=== PATIENT | female | born 2000 | race Caucasian/White ===

== ENCOUNTER 2020-12-08 06:08 | Outpatient (CLI) | payer BC ==
[~2020-12-08] VITALS: Ht 165.1 cm; Wt 59.0 kg
[2020-12-15] MEDS ORDERED: MULT-1136 PO (14:36)
[2020-12-15] MEDS ORDERED: DIPH25TA65 PO (14:36)
== END 2020-12-15 14:53 | disposition home or self-care (01) ==
LOC: PREOP 06:08
PROVIDERS: ATTEND Podiatrist Foot & Ankle Surgery
DX: Z01.818 Encounter for other preprocedural examination (principal)

== ENCOUNTER 2020-12-22 07:56 | Day surgery (SDC) | payer BC ==
[~2020-12-22] VITALS: Ht 165.1 cm; Wt 59.0 kg
[2020-12-22] VITALS (11 sets, daily range): BP systolic 99–140; BP diastolic 49–100
[~2020-12-22 07:56] MED LIST: DIPH25TA65 PO; MULT-1136 PO
--- OUTSIDE RECORDS SUMMARY | 2020-12-22 07:59 | XMS REPORT ---
Author Author Kim Pate [facility] Address [address] [place], [place] [id number] Care Team Providers Care Five Piece Expansion Maker Hand Name Role Phone Lola Pate PCP Tracey Fernandeserine PreferredProvider Allergies and Adverse Reactions Name Reaction Notes Augmentin Ceftin amoxicillin Plan of Treatment Planned Activity Comments Planned Date Planned Time Plan/Goal Thyroid antibody assay 12/05/2020 12:00 AM DONTE W/REFLEX 12/05/2020 12:00 AM Tick-borne disease panel 12/05/2020 12:00 AM Tick-borne disease panel 12/05/2020 12:00 AM Tick-borne disease panel 12/05/2020 12:00 AM EBV comprehensive antibody panel 12/05/2020 12:00 AM EBV comprehensive antibody panel 12/05/2020 12:00 AM Medications Active Name Start Date Estimated Completion Date SIG Co mments Cyclafem 1/35 (28) 1 mg-35 mcg tablet 09/11/2020 08/13/2021 take 1 tablet by oral route once daily for 28 days Name Start Date Expiration Date SIG Comments Medrol (Koby) 4 mg oral tablets,dose pack 09/06/2015 09/07/19 16 take as directed for 1 day amoxicillin 875 mg oral tablet 10/25/2016 11/04/2016 t elder 1 tablet (875 mg) by oral route every 12 hours for 10 days Bactrim DS 800-160 mg oral tablet 06/13/2019 06/23/2019 take 1 tablet by oral route every 12 hours for 10 days desonide 0.05 % topical lotion 08/30/2019 09/12/2019 a pply sparingly and rub gently into the affected area(s) by topical route 2 times per day after washing face with baby soap and warm water. Discontinued Name Start Date Discontinued Date SIG Comments ondansetron 4 mg oral tablet,disintegrating 11/21/20162018 dissolve 1 tablet by oral route every 6 hours as needed 04/16 (21) 1-20 mg-mcg oral tablet 10/19/2018 9 take 1 tablet by oral route once daily for 28 days PreGenna 20 mg iron- 1 mg oral tablet 05/29/2020 take 1 tablet by oral route QD (multivitamin) Problem List Not available. Vital Signs Date Time BP-Sys(mm[Hg] BP-Alyx(mm[Hg]) HR(bpm) RR(rpm) Temp WT HT HC BMI BSA BMI Percentile O2 Sat(%) 12/03/2020 6:01:00 PM 110 mm[Hg] 62 mm[Hg] 72 {beats}/min 18 rpm 98.1 F 133.312 lbs 66 in 21.517 kg/m2 1.6781 m2 100 % 05/29/2020 11:51:00 AM 124 mm[Hg] 80 mm[Hg] 86 {beats}/min 18 rpm 98.8 F 137 lbs 66 in 22.11 kg/m2 1.70 m2 99 % 08/29/2019 11:07:00 AM 114 mm[Hg] 68 mm[Hg] 72 {beats}/min 18 rpm 99 F 142 lbs 66 in 22.9192 kg/m2 1.7319 m2 99 % 04/03/2019 2:09:00 PM 122 mm[Hg] 68 mm[Hg] 86 {beats}/min 18 rpm 98.6 F 133.375 lbs 66 in 21.53 kg/m2 1.68 m2 99 % 12/12/2018 2:37:00 PM 116 mm[Hg] 68 mm[Hg] 70 {beats}/min 18 rpm 98.1 F 137 lbs 66 in 22.1122 kg/m2 1.7011 m2 0 % 98 % 05/04/2018 10:19:00 AM 114 mm[Hg] 64 mm[Hg] 76 {beats}/min 18 rpm 98.1 F 130.125 lbs 66 in 21.00 kg/m2 1.66 m2 41.3 % 98 % 11/21/2016 2:12:00 PM 118 mm[Hg] 82 mm[Hg] 103 {beats}/min 20 rpm 97.8 F 116 lbs 100 % 10/25/2016 2:13:00 PM 112 mm[Hg] 64 mm[Hg] 90 {beats}/min 18 rpm 97.8 F 123.125 lbs 66 in 19.87 kg/m2 1.61 m2 29.9 % 99 % 09/06/2015 9:44:00 AM 138 mm[Hg] 90 mm[Hg] 77 {beats}/min 20 rpm 96.9 F 119 lbs 66 in 19.2069 kg/m2 1.5854 m2 25.9 % 99 % Social History Name Description Comments Tobacco Never smoker Alcohol Never Exercises regularly History of Procedures Date Ordered Description Order Status 12/12/2018 2:54 PM FALL RISK ASSESSMENT DOCD Reviewed 12/12/2018 2:54 PM SCREEN DEPRESSION PERFORMED Reviewed 04/03/2019 2:38 PM FALL RISK ASSESSMENT DOCD Reviewed 04/03/2019 2:38 PM SCREEN DEPRESSION PERFORMED Reviewed 05/03/2019 12:00 AM Physical Therapy Consultation Reviewed 08/29/2019 12:04 PM FALL RISK ASSESSMENT DOCD Reviewed 08/29/2019 12:04 PM SCREEN DEPRESSION PERFORMED Reviewed 08/29/2019 12:00 AM COMPLETE CBC W/AUTO DIFF WBC Reviewed 08/29/2019 12:00 AM COMPREHEN METABOLIC PANEL Reviewed 05/29/2020 12:00 AM ROUTINE VENIPUNCTURE Reviewed 05/29/2020 12:00 AM COMPLETE CBC W/AUTO DIFF WBC Reviewed 05/29/2020 12:00 AM COMPREHEN METABOLIC PANEL Reviewed 05/29/2020 12:00 AM ASSAY THYROID STIM HORMONE Reviewed 05/29/2020 12:00 AM ASSAY OF FREE THYROXINE Reviewed 05/29/2020 12:00 AM VITAMIN D 25 HYDROXY Reviewed 05/29/2020 12:00 AM MILA-VILLAR NUCLEAR ANTIGEN Reviewed 05/29/2020 12:00 AM MILA-VILLAR CAPSID VCA Reviewed 05/29/2020 12:00 AM US EXAM OF HEAD AND NECK Reviewed 12/05/2020 12:00 AM COMPLETE CBC W/AUTO DIFF WBC Reviewed 12/05/2020 12:00 AM COMPREHEN METABOLIC PANEL Reviewed 12/05/2020 12:00 AM ASSAY THYROID STIM HORMONE Reviewed 12/05/2020 12:00 AM ASSAY OF FREE THYROXINE Reviewed 12/05/2020 12:00 AM ASSAY TRIIODOTHYRONINE (T3) Reviewed 12/05/2020 12:00 AM ROUTINE VENIPUNCTURE Reviewed Results Summary Date and Description Results 05/04/2018 11:46 AM Falls in last 6 months? No U nsteady or worry about falling? No Fall Risk Assessment Not At Risk During the past month, have you been feeling depressed? No During the past month, have you lost interest in usual activity? No 12/12/2018 2:54 PM Falls in last 6 months? No U nsteady or worry about falling? No Fall Risk Assessment Not At Risk During the past month, have you been feeling depressed? No During the past month, have you lost interest in usual activity? No 04/03/2019 2:38 PM Falls in last 6 months? No U nsteady or worry about falling? No Fall Risk Assessment Not At Risk During the past month, have you been feeling depressed? No During the past month, have you lost interest in usual activity? No 08/29/2019 11:40 AM WBC 6.1 RBC 4.77 HGB 13.90 g /dLHCT 42.20 %MCV 89.0 fLMCH 29.10 pgMCHC 32.90 g/dLRDW SD 42 fLRDW CV 12.90 %MPV 10.90 fLPLT 292 x10E3/uLNRBC# 0.00 NRBC% 0.0 %NEUT 55.5 %LYMP 28.6 %MONO 9.9 %EOS 4.6 %BASO 1.2 #NEUT 3.36 #LYMP 1.73 #MONO 0.60 #EOS 0.28 #BASO 0.07 MANUAL DIFF NOT IND GLUCOSE 90 SODIUM 138 POTASSIUM 4.8 CHLORIDE 106.0 mmol/LCO2 25 BUN 10.0 mg/dLCREATININE 0.810 mg/dLSGOT/AST 20 SGPT/ALT 10 ALK PHOS 76 TOTAL PROTEIN 6.7 ALBUMIN 4.0 TOTAL BILI 0.5 CALCIUM 9.70 mg/dLAGE 19 GFR NonAA 89 GFR AA 108 eGFR 89 mL/min/1.73meGFR AA* >60 mL/min/1.73m 08/29/2019 12:04 PM Falls in last 6 months? No U nsteady or worry about falling? No Fall Risk Assessment Not At Risk During the past month, have you been feeling depressed? No During the past month, have you lost interest in usual activity? No 05/29/2020 12:45 PM WBC 8.8 RBC 4.90 HGB 14.10 g /dLHCT 44.0 %MCV 90.0 fLMCH 28.80 pgMCHC 32.0 g/dLRDW SD 42 %RDW CV 12.70 %MPV 10.50 fLPLT 403 x10E3/uLNRBC# 0.00 NRBC% 0.0 %NEUT 67.5 %LYMP 22.8 %MONO 7.4 %EOS 1.4 %BASO 0.7 #NEUT 5.91 #LYMP 2.00 #MONO 0.65 #EOS 0.12 #BASO 0.06 MANUAL DIFF NOT IND FREE T4 1.06 VITAMIN D 34.4 GLUCOSE 90 SODIUM 134 POTASSIUM 4.3 CHLORIDE 102.0 mmol/LCO2 27 BUN 7.0 mg/dLCREATININE 0.80 mg/dLSGOT/AST 35 SGPT/ALT 25 ALK PHOS 48 TOTAL PROTEIN 6.9 ALBUMIN 4.0 TOTAL BILI 0.6 CALCIUM 9.60 mg/dLAGE 19 GFR NonAA 91 GFR AA 110 eGFR 91 mL/min/1.73meGFR AA* >60 mL/min/1.73mTSH 1.23 EBV Ab VCA, IgM <36.0 EBV Ab VCA, IgG <18.0 EBV Nuclear Antigen Ab,IgG <18.0 Interpretation: JESICA 12/05/2020 5:30 PM WBC 8.6 RBC 4.26 HGB 12.10 g /dLHCT 37.70 %MCV 89.0 fLMCH 28.40 pgMCHC 32.10 g/dLRDW SD 40 %RDW CV 12.50 %MPV 11.30 fLPLT 388 x10E3/uLNRBC# 0.00 NRBC% 0.0 %NEUT 60.3 %LYMP 26.5 %MONO 9.2 %EOS 2.4 %BASO 1.4 #NEUT 5.19 #LYMP 2.28 #MONO 0.79 #EOS 0.21 #BASO 0.12 MANUAL DIFF NOT IND T3 TOTAL 1.87 GLUCOSE 106 SODIUM 137 POTASSIUM 4.3 CHLORIDE 103.0 mmol/LCO2 25 BUN 6.0 mg/dLCREATININE 0.60 mg/dLSGOT/AST 27 SGPT/ALT 15 ALK PHOS 56 TOTAL PROTEIN 7.3 ALBUMIN 4.4 TOTAL BILI 0.5 CALCIUM 10.20 mg/dLAGE 20 GFR NonAA 125 GFR AA 152 eGFR 125 mL/min/1.73meGFR AA* >60 mL/min/1.73mTSH 1.61 FREE T4 1.16 History Of Immunizations Not available. History of Past Illness Name Date of Onset Comments Allergies Irritant contact dermatitis, unspecified trigger Sep 06 2015 9:45AM Gastroenteritis Nov 21 2016 2:22PM Abscess of great toenail of left foot Oct 25 2016 2:15PM Acne May 04 2018 10:20AM Irregular menses May 04 2018 10:20AM Irregular menses Dec 12 2018 2:38PM Lumbago with sciatica, right side Apr 03 2019 2:10PM Irregular menses Apr 03 2019 2:10PM Lumbago with sciatica, right side May 03 2019 12:11PM General medical examination; routine gen eral medical examination at a health care facility Aug 29 2019 11:09AM Perioral dermatitis Aug 29 2019 11:09AM High risk medication use Aug 29 2019 11:09AM Dysmenorrhea, unspecified Aug 29 2019 11:09AM half-way (current) use of hormonal contraceptives Aug 28 11:09AM Hypothyroid May 29 2020 12:27PM HTN (hypertension) May 29 2020 12:27PM Vitamin D deficiency May 29 2020 12:27PM Anemia May 29 2020 12:27PM Viral illness May 29 2020 12:27PM Fatigue May 29 2020 12:27PM Left Upper Lymphadenitis May 29 2020 12:31PM Neck pain on left side May 29 2020 12:31PM Lymphadenitis, acute May 29 2020 11:54AM Surgical Risk Stratification (Preoperative Examination) Dec 03 2020 6:01PM Fatigue Dec 05 2020 7:55AM Polyarthralgia Dec 05 2020 7:55AM Dizziness Dec 05 2020 7:55AM Vitamin B 12 deficiency Dec 05 2020 7:55AM Thyroid nodule Dec 05 2020 7:55AM Fatigue Dec 03 2020 6:01PM Thyromegaly Dec 03 2020 6:01PM Lymph nodes enlarged Dec 03 2020 6:01PM Payers Insurance Name Company Name Plan Name Plan Number Policy Number Mannie cy [id number]/ A History of Encounters Visit Date Visit Type Provider 12/05/2020 Laboratory Lola Pate APR N 12/03/2020 Office visit Linsey Devine MEDICAL RESEARCHER 05/29/2020 Office visit Elisha Barbosa MEDICAL RESEARCHER 08/29/2019 Office visit Tracey Lu PRN 04/03/2019 Office visit Tracey Lu PRN 12/12/2018 Office visit Tracey Lu PRN 05/04/2018 Office visit Tracey Lu PRN 11/21/2016 Office visit Emigdio Pak NP 10/25/2016 Office visit Tracey Lu PRN 09/06/2015 Office visit Linsey Devine MEDICAL RESEARCHER
--- OUTSIDE RECORDS SUMMARY | 2020-12-22 07:59 | XMS REPORT ---
Author Author Kim Pate [facility] Address [address] [place], [place] [id number] Care Team Providers Care Health And Wellness Instructor Name Role Phone Lola Pate PCP Tracey [...] 11:09AM Dysmenorrhea, unspecified Aug 29 2019 11:09AM nursing home (current) use of hormonal contraceptives Aug 28 [...] Number Mannie cy [id number]/ A History of Encounters Visit Date Visit Type Provider 12/05/2020 Laboratory Lola Pate APR N 12/03/2020 Office visit Linsey Devine CYLINDER LOADER 05/29/2020 Office visit Elisha Barbosa CYLINDER LOADER 08/29/2019 Office visit Tracey Lu PRN 04/03/2019 Office visit Tracey Lu PRN 12/12/2018 Office visit Tracey Lu PRN 05/04/2018 Office visit Tracey Lu PRN 11/21/2016 Office visit Emigdio Pak NP 10/25/2016 Office visit Tracey Lu PRN 09/06/2015 Office visit Linsey Devine CYLINDER LOADER
--- OUTSIDE RECORDS SUMMARY | 2020-12-22 07:59 | XMS REPORT ---
Author Author Kim Pate [facility] Address [address] [place], [place] [id number] Care Team Providers Care Call Worker Name Role Phone Lola Pate PCP Tarcey Fernandes PreferredProvider Allergies and Adverse Reactions Name Reaction Notes Augmentin Ceftin amoxicillin Plan of Treatment Planned Activity Comments Planned Date Planned Time Plan/Goal CBC W/ AUTO DIFF (RFLX MAN DIFF IF IND). 12/05/2020 12:00 AM CMP 12/05/2020 12:00 AM TSH 12/05/2020 12:00 AM T4 FREE 12/05/2020 12:00 AM T3 TOTAL 12/05/2020 12:00 AM Thyroid antibody assay 12/05/2020 12:00 AM DONTE [...] HEAD AND NECK Reviewed 12/05/2020 12:00 AM ROUTINE VENIPUNCTURE Reviewed [...] <18.0 EBV Nuclear Antigen Ab,IgG <18.0 Interpretation: COMMENT History Of Immunizations Not available. History of [...] 11:09AM Dysmenorrhea, unspecified Aug 29 2019 11:09AM senior living (current) use of hormonal contraceptives Aug 28 [...] 7:55AM Thyroid nodule Dec 05 2020 7:55AM Payers Insurance Name Company Name Plan Name Plan Number Policy Number Mannie cy Group Number Start Date BCBS [facility] [id number] N/ A History of Encounters Visit Date Visit Type Provider 12/05/2020 Laboratory Lola Pate APR N 12/03/2020 Office visit Linsey Devine GOLF CLUB MAKER 05/29/2020 Office visit Elisha Barbosa GOLF CLUB MAKER 08/29/2019 Office visit Tracey Lu PRN 04/03/2019 Office visit Tracey Lu PRN 12/12/2018 Office visit Tracey Lu PRN 05/04/2018 Office visit Tracey Lu PRN 11/21/2016 Office visit Emigdio Pak NP 10/25/2016 Office visit Tracey Lu PRN 09/06/2015 Office visit Linsey Devine GOLF CLUB MAKER
--- OUTSIDE RECORDS SUMMARY | 2020-12-22 07:59 | XMS REPORT ---
Author Author Kim Pate [facility] Address [address] [place], [place] [id number] Care Team Providers Care Assignment Editor Name Role Phone Lola Pate PCP Tracey Fernandes PreferredProvider Allergies and Adverse Reactions Name [...] cy Group Number Start Date BCBS [facility]cbs [facility] [id number] N/ A History of Encounters Visit Date Visit Type Provider 12/05/2020 Laboratory Lola Pate APR N 12/03/2020 Office visit Linsey Devine VOCATIONAL EXAMINER 05/29/2020 Office visit Elisha Barbosa VOCATIONAL EXAMINER 08/29/2019 Office visit Tracey Lu PRN 04/03/2019 Office visit Tracey Lu PRN 12/12/2018 Office visit Tracey Lu PRN 05/04/2018 Office visit Tracey Lu PRN 11/21/2016 Office visit Emigdio Pak NP 10/25/2016 Office visit Tracey Lu PRN 09/06/2015 Office visit Linsey Devine VOCATIONAL EXAMINER
--- OUTSIDE RECORDS SUMMARY | 2020-12-22 07:59 | XMS REPORT ---
Author Author Kim Pate [facility] Address [address] [place], [place] [phone] Care Team Providers Care Squirt Machine Operator Name Role Phone Drew Patemy Sayra PCP Tracey Fernandeserine PreferredProvider Allergies and Adverse Reactions Name Reaction Notes Augmentin Ceftin amoxicillin Plan of Treatment Not available. Medications Active Name Start Date Estimated Completion Date SIG Co mments Cyclafem (28) 1 mg-35 mcg tablet 09/11/2020 08/13/2021 [...] ASSAY TRIIODOTHYRONINE (T3) Reviewed 12/05/2020 12:00 AM MICROSOMAL ANTIBODY EACH Returned 12/05/2020 12:00 AM ANTINUCLEAR ANTIBODIES DONTE Returned 12/05/2020 12:00 AM EHRLICHIA ANTIBODY Returned 12/05/2020 12:00 AM LYME DISEASE ANTIBODY Returned 12/05/2020 12:00 AM PROTOZOA ANTIBODY NOS Returned 12/05/2020 12:00 AM MILA-VILLAR CAPSID VCA Returned 12/05/2020 12:00 AM MILA-VILLAR NUCLEAR ANTIGEN Returned 12/05/2020 12:00 AM ROUTINE VENIPUNCTURE Reviewed Results [...] 11:09AM Dysmenorrhea, unspecified Aug 29 2019 11:09AM care home (current) use of hormonal contraceptives Aug [...] Number Mannie cy [id number] A History of Encounters Visit Date Visit Type Provider 12/05/2020 Laboratory Lola Pate APR N 12/03/2020 Office visit Linsey Devine LIQUOR MERCHANT 05/29/2020 Office visit Elisha Barbosa LIQUOR MERCHANT 08/29/2019 Office visit Tracey Lu PRN 04/03/2019 Office visit Tracey Lu PRN 12/12/2018 Office visit Tracey Lu PRN 05/04/2018 Office visit Tracey Lu PRN 11/21/2016 Office visit Emigdio Pak NP 10/25/2016 Office visit Tracey Lu PRN 09/06/2015 Office visit Linsey Devine LIQUOR MERCHANT
--- OUTSIDE RECORDS SUMMARY | 2020-12-22 07:59 | XMS REPORT ---
Author Kim Bowers [facility] Address [address] [place], [place] [id number] Care Team Providers Care Oracle Technical Architect Name Role Phone Linsey Devine PCP Tracey Fernandes PreferredProvider Allergies and Adverse [...] US EXAM OF HEAD AND NECK Reviewed Results Summary Date and Description Results [...] cy Group Number Start Date BCBS [facility]cbs [facility] [id number] N/ A History of Encounters Visit Date Visit Type Provider 12/03/2020 Office visit Linsey Devine SETTLEMENT WORKER 05/29/2020 Office visit Elisha Barbosa SETTLEMENT WORKER 08/29/2019 Office visit Tracey Lu PRN 04/03/2019 Office visit Tracey Lu PRN 12/12/2018 Office visit Tracey Lu PRN 05/04/2018 Office visit Tracey Lu PRN 11/21/2016 Office visit Emigdio Pak NP 10/25/2016 Office visit Tracey Lu PRN 09/06/2015 Office visit Linsey Devine SETTLEMENT WORKER
[2020-12-22] MEDS ORDERED: NORE-45 (08:14)
[2020-12-22] MEDS ORDERED: LACTATED RINGERS 1,000 ML IV PRN (08:15)
[2020-12-22] MEDS ORDERED: CLINDAMYCIN 600 MG/50 ML IVPB 50 ML IV ONE (08:15)
[2020-12-22] MEDS ORDERED: LIDOCAINE 1% INJ 20 ML 20 ML VIAL ONE (09:13)
[2020-12-22] MEDS ORDERED: BUPIVACAINE 0.5% 30 ML (SENSORCAINE) VIAL ONE (09:14)
[2020-12-22] MEDS ORDERED: fentaNYL INJ 100 MCG/2 ML AMP ONE (09:42)
[2020-12-22] MEDS ORDERED: MIDAZOLAM 2 MG/2 ML (VERSED) VIAL ONE (09:43)
[2020-12-22] MEDS ORDERED: LIDOCAINE PF 2% 5 ML (XYLOCAINE) VIAL ONE (09:44)
[2020-12-22] MEDS ORDERED: proPOfol 200 MG/20 ML (DIPRIVAN) VIAL IV ONE (09:44)
[2020-12-22] MEDS ORDERED: SEVOFLURANE (ULTANE) 15 ML INHAL SOLN ONE (09:44)
[2020-12-22] MEDS ORDERED: ONDANSETRON 4 MG/2 ML (SDV) Z0FRAN ONE (09:44)
--- NOTE | 2020-12-22 10:03 | Progress Note-Pre Operative ---
Pre-Operative Progress Note H&P Reviewed The H&P was reviewed, patient examined and no changes noted. Date Seen by Provider: Dec 22, 2020 Time Seen by Provider: 10: Date H&P Reviewed: Dec 22, 2020 Time H&P Reviewed: :02 Pre-Operative Diagnosis: Hallux Valgus, right NITHIN MONTOYA DPM Dec 22, 2020 10:03
[2020-12-22] MEDS ORDERED: KETOROLAC 30 MG/ML VIAL ONE (11:03)
[2020-12-22] MEDS ORDERED: HYDROmorphone 2 MG/ML VIAL (DILAUDID) IV ONE (11:30)
[2020-12-22] MEDS ORDERED: ONDANSETRON 4 MG/2 ML (SDV) Z0FRAN IVP PRN (11:30)
--- NOTE | 2020-12-22 11:31 | Progress Note-Post Operative ---
Post-Operative Progess Note Surgeon (s)/Dough Mixer Operator (s) Surgeon NITHIN MONTOYA DPM Dough Mixer Operator: none Pre-Operative Diagnosis Hallux Valgus, right Post-Operative Diagnosis Same Procedure & Operative Findings Date of Procedure 12/22/20 Procedure Performed/Findings Garrett-Rafiq Bunionectomy, right Anesthesia Type General Estimated Blood Loss Estimated blood loss (mL): Minimal Specimens/Packing Specimens Removed none NITHIN MONTOYA DPM Dec 22, 2020 11:31
[2020-12-22] MEDS ORDERED: ACHD5005 PO (11:42)
[2020-12-22] MEDS ORDERED: CLIN150C2 PO (11:42)
[2020-12-22] MEDS ORDERED: LACTATED RINGERS 1,000 ML IV SCH (11:45)
[2020-12-22] MEDS ORDERED: HYDROcodone/APAP 5 MG/325 MG (LORTAB) TAB PO PRN (11:45)
--- NOTE | 2020-12-22 13:05 | Anesthesia-General Post-Op ---
General Patient Condition Mental Status/LOC: Same as Preop Cardiovascular: Satisfactory Nausea/Vomiting: Absent Respiratory: Satisfactory Pain: Controlled Complications: Absent Post Op Complications Complications None Follow Up Care/Instructions Patient Instructions None needed. Anesthesia/Patient Condition Patient Condition Patient is doing well, no complaints, stable vital signs, no apparent adverse anesthesia problems. No complications reported per nursing. D/C home per [facility] Criteria: Yes ERINN WANG CRNA Dec 22, 2020 13:05
--- NOTE | 2020-12-22 14:49 | OPERATIVE REPORT ---
DATE OF SERVICE: 12/22/2020 SURGEON: Nithin Montoya DPM PREOPERATIVE DIAGNOSIS: Hallux abductovalgus metatarsal primus varus, right. POSTOPERATIVE DIAGNOSIS: Hallux abductovalgus metatarsal primus varus, right. PROCEDURE: Modified Garrett-Rafiq bunionectomy, right foot. WOUND CLASS: Clean. ANESTHESIA: General. HEMOSTASIS: Pneumatic thigh tourniquet at 250 mmHg. INDICATIONS: This 20-year-old female presents complaining of a painful bunion, right foot. Conservative therapy was met with unsatisfactory results and the patient is agreeable to surgical intervention after risks and complications were discussed at length. No guarantees were extended to the patient and she is willing to proceed. DESCRIPTION OF PROCEDURE: The patient was brought back to the operating table, placed in secure supine position. General anesthetic was then induced. Appropriate timeout was performed. Pneumatic thigh tourniquet was placed on the right lower extremity over several layers of padding. The right foot was then prepped and draped in normal sterile manner. The right foot was then elevated and allowed to exsanguinate after which the tourniquet was inflated to 250 mmHg. Attention was then directed to the dorsal aspect of the first metatarsophalangeal joint where a 6 cm longitudinal linear incision was created. The incision was deepened in the same plane with great care to identify and retract all vital neurovascular structures. Only necessary blood vessels were cauterized as encountered. The incision was deepened down to the capsular tissue where a longitudinal capsulotomy was performed. The capsular tissue was reflected mediolaterally exposing the hypertrophic medial eminence to the first metatarsal head, which was resected utilizing a power sagittal saw. The dorsal eminence to the first metatarsal head was also reduced with a power sagittal saw and further contoured and smoothed with a power bur. Attention was then directed into the first intermetatarsal space where a lateral release was performed. Blunt dissection was carried out into the lateral capsule where a lateral capsulorrhaphy was performed, after which the conjoint tendon of the adductor hallucis was released. The hallux was then forcibly adducted releasing any additional fibers holding in its abnormal position. Attention was redirected to the medial aspect of the first metatarsal where a Chevron-type osteotomy was performed. The Chevron osteotomy allowed the capital fragment to translocate laterally and was fixated in its corrected position utilizing a 0.062 threaded K-wire driven from dorsal proximal to plantar distal across the osteotomy with great care not to penetrate the articular cartilage. The K-wire was cut flush with the dorsal aspect of the first metatarsal head. The medial eminence to the first metatarsal was further contoured and smoothed with a power sagittal saw and power bur. The wound was flushed with copious amounts of normal saline. Attention was then directed to the diaphysis of the proximal phalanx, right hallux where subperiosteal dissection was carried out. Two osteotomies were performed to the mid diaphysis resecting a wedge of bone with the base medial and lateral cortices held intact. Two military pilot holes were created at the dorsal medial aspect of the osteotomies allowing a 28-gauge monofilament wire to pass through the military pilot hole securing the osteotomy in a closed position. Excellent bony apposition and fixation was appreciated at this time and good reduction of the hallux valgus deformity was appreciated. The wound was flushed with copious amounts of normal saline throughout the procedure and closure was now performed in layers. Deep closure was performed with 3-0 Vicryl, superficial with 4-0 Vicryl and skin closure with 4-0 Prolene in a horizontal mattress type stitch. Postoperative injection consisted of 10 mL of 0.5% Marcaine injected in a local infusion to the surgical site. It should be noted that preoperatively, 10 mL of 1:1 mixture of 1% Xylocaine, 0.5% Marcaine was injected in a Robert block as well. Postoperative injection also included 10 mg dexamethasone into the first intermetatarsal space, right foot. Postoperative dressing consisted of Betadine soaked Adaptic, sterile 4 x 4, sterile Kerlix all secured with a Coban wrap. The patient tolerated the anesthesia and procedure well and was transported from the operating room to the recovery area with vital signs stable and vascular status intact to all digits of the right foot. She is to follow up in my office in 10 days' period of time or sooner if necessary. She was given a prescription for clindamycin as well as Vicodin. She is to be nonweightbearing on the right lower extremity. Job ID: [id number] DocumentID: [id number] Dictated Date: 12/22/2020 11:49:33 Ethanol Operator Date: 12/22/2020 14:48:59 Dictated By: NITHIN MONTOYA DPM
--- NOTE | 2020-12-22 18:14 | Diagnostic Imaging Report ---
INDICATION: Postop foot. COMPARISON: None FINDINGS: Multiple radiographic views of the right foot were obtained. There are postsurgical changes of previous hallux valgus repair. Orthopedic nail is identified within the distal margins of the 1st metatarsal. Cerclage wires are also identified adjacent to proximal lateral margins of the 1st proximal phalanx. There is scattered soft tissue emphysema as well. No unexpected radiopaque foreign bodies are seen. Ostomy lines of the 1st metatarsal and 1st proximal phalanx are also noted. No other acute osseous abnormality is seen. Joint spaces are maintained. IMPRESSION: 1. Expected postsurgical changes to the right foot. Dictated by: Dictated on workstation # [id number]
== END 2020-12-22 13:45 | disposition home or self-care (01) ==
LOC: SDC 07:56
PROVIDERS: ATTEND Podiatrist Foot & Ankle Surgery
DX: M20.11 Hallux valgus (acquired), right foot (principal); Z79.899 Other long term (current) drug therapy
CPT/HCPCS: 28299; 73620; 84703; 87081; C1713

== ENCOUNTER 2021-09-09 10:51 | Outpatient (RCR) | payer BC ==
[2021-09-04 11:17] VITALS: BP 145/99
[2021-09-04] MEDS: IRON SUCROSE 200 MG/10 ML (VENOFER) VIAL IV SCH (11:32)
[2021-09-07 11:00] VITALS: BP 125/85
[2021-09-07] MEDS: IRON SUCROSE 200 MG/10 ML (VENOFER) VIAL IV SCH (11:05)
[~2021-09-09] VITALS: Wt 78.0 kg
[~2021-09-09 10:51] MED LIST changes: +ACHD5005 PO; +CLIN150C2 PO; +NORE-45
[2021-09-09 11:17] VITALS: BP 128/98
[2021-09-09] MEDS: IRON SUCROSE 200 MG/10 ML (VENOFER) VIAL IV SCH (11:34)
[2021-09-11] MEDS ORDERED: IRON SUCROSE 200 MG/10 ML (VENOFER) VIAL IV SCH (11:00)
== END 2021-09-24 | disposition home or self-care (01) ==
LOC: SDC 10:51
PROVIDERS: ATTEND Internal Medicine
DX: E61.1 Iron deficiency (principal)
CPT/HCPCS: 96365

== ENCOUNTER 2021-09-17 10:30 | Outpatient (CLI) | payer BC ==
[~2021-09-17] VITALS: Ht 165 cm; Wt 60.0 kg
[2021-09-17] VITALS (18 sets, daily range): BP systolic 122–154; BP diastolic 82–114
[2021-09-17] MEDS ORDERED: NS IV 1000 ML 1,000 ML ONE (10:42)
[2021-09-17] MEDS ORDERED: NS IV 1000 ML 1,000 ML IV SCH (10:45)
--- NOTE | 2021-09-20 16:51 | Cardiac Procedure Note-[facility] ---
Cardiology Procedures Date of Procedure 09/17/21 TILT TABLE TEST INDICATION: Tachycardia. PROCEDURE: After informed consent, a peripheral IV catheter was placed. The patient was placed on the tilt table and resting vital signs were obtained. The resting heart rate was 75 bpm with a blood pressure 135/82 mmHg. The patient was then brought to 70 degrees upright and serial vital signs were obtained. Continuous telemetry monitoring was obtained. While the patient was upright, she gradually developed tachycardia with a maximum heart rate of 144 bpm approximately 20 minutes into the test. At that time, her blood pressure was 130/112 mmHg. There was no significant hypotension or bradycardia. The patient was then brought to the supine position. The final vital signs were a heart rate of 77 bpm with a blood pressure of 124/84 mmHg. These findings are consistent with postural orthostatic tachycardia syndrome (POTS). IMPRESSION: 1. Upright tilt table testing was consistent with postural orthostatic tachycardia syndrome (POTS). There was no evidence of a vasovagal response. Certain portions of this document may have been dictated utilizing voice recognition technology. Inherent to this technology, typographical and grammatical errors may exist. As much as I am diligent to identify and correct these mistakes, some errors may remain in the document. CHANELL LOPEZ JR, MD Sep 20, 2021 16:51
== END 2021-09-17 12:37 ==
LOC: CARD 10:30
PROVIDERS: ATTEND Internal Medicine Cardiovascular Disease
DX: R00.0 Tachycardia, unspecified (principal)
CPT/HCPCS: 93660

== ENCOUNTER → 2021-10-19 | Outpatient (CLI) | payer BC ==
[2021-10-19 11:26] LABS: BASOPHILS # (AUTO) 0.1 10^3/uL (0.0-0.1); BASOPHILS % (AUTO) 2 % (0-10); EOSINOPHILS # (AUTO) 0.3 10^3/uL (0.0-0.3); EOSINOPHILS % (AUTO) 4 % (0-10); HEMATOCRIT 44 % (35-52); HEMOGLOBIN 13.8 g/dL (11.5-16.0); LYMPHOCYTES # (AUTO) 1.7 10^3/uL (1.0-4.0); LYMPHOCYTES % (AUTO) 29 % (12-44); MEAN CORPUSCULAR HEMOGLOBIN 28 pg (25-34); MEAN CORPUSCULAR HGB CONC 32 g/dL (32-36); MEAN CORPUSCULAR VOLUME 88 fL (80-99); MEAN PLATELET VOLUME 9.7 fL (9.0-12.2); MONOCYTES # (AUTO) 0.5 10^3/uL (0.0-1.0); MONOCYTES % (AUTO) 9 % (0-12); NEUTROPHILS # (AUTO) 3.4 10^3/uL (1.8-7.8); NEUTROPHILS % (AUTO) 57 % (42-75); PLATELET COUNT 332 10^3/uL (130-400)
== END ==
LOC: LAB 11:02
PROVIDERS: ATTEND Internal Medicine
DX: D64.9 Anemia, unspecified (principal)
CPT/HCPCS: 36415; 82728; 83540; 83550; 85025